=== PATIENT | female | born 1965 | race Caucasian/White ===

== ENCOUNTER 2016-08-28 07:13 | Emergency (ER) | payer BC ==
[~2016-08-28] VITALS: Ht 170.2 cm; Wt 70.3 kg
[~2016-08-28 07:13] MED LIST: FLUT250M2 IN; IBU100LQ GT; PERCOT PO; PRO AIR INH; SUM25T PO
[2016-08-28 07:33] VITALS: BP 153/94
[2016-08-28] MEDS ORDERED: PROCHLORPERAZINE EDISYLATE 5 MG/ML 2ML VIAL IV ONE (08:00)
== END 2016-08-28 09:56 | disposition home or self-care (01) ==
LOC: ER 07:14
DX: G43.909 Migraine, unspecified, not intractable, without status migrainosus (principal); J45.909 Unspecified asthma, uncomplicated; Z87.891 Personal history of nicotine dependence; R11.2 Nausea with vomiting, unspecified; H53.149 Visual discomfort, unspecified
CPT/HCPCS: 96374; 99284; J0780

== ENCOUNTER → 2019-06-11 | Outpatient (CLI) | payer BC ==
[~2019-06-11] MED LIST changes: -IBU100LQ GT; +IBUP100S11 GT
[2019-06-11 11:24] LABS: Basophils # (auto) 0 uL; Basophils % (auto) 0.4 % (0.0-2.0); Eosinophils # (auto) 0.4 uL; Eosinophils % (auto) 5.9 % (0.0-7.0); Hematocrit 50.2 % (36.0-46.0); Hemoglobin 16.8 g/dL (12.2-16.2); Lymphocytes % (auto) 29.6 % (10.0-50.0); Mean Corpuscular Hemoglobin 31.1 pg (28.0-32.0); Mean Corpuscular Hgb Conc. 33.4 g/dL (32.0-36.0); Monocytes # (auto) 0.7 uL; Monocytes % (auto) 10.7 % (0.0-12.0); Neutrophils # (auto) 3.5 uL; Neutrophils % (auto) 53.4 % (37.0-80.0); Nucleated Red Blood Cells % 0.1 %; Platelet Count (auto) 241 10^3/uL (140-450); Red Cell Distribution Width 12.9 % (11.8-14.3); White Blood Cell 6.6 10^3/uL (4.4-10.8)
[2019-06-11 11:27] LABS: Urine Bacteria NONE SEEN /hpf (None Seen); Urine Blood 2+ /uL (Negative); Urine Mucus FEW (None Seen); Urine Specific Gravity 1.027 (1.001-1.035); Urine WBC 6 /hpf (0 - 5)
[2019-06-11 12:21] LABS: Follicle Stimulating Hormone 67.8 IU/L (SEE BELOW); Leuteinizing Hormone 22.4 IU/L
[2019-06-11 12:22] LABS: Folate (Folic Acid) 13.25 ng/mL (5.38-24)
[2019-06-11 12:45] LABS: Albumin 3.6 g/dL (3.4-5.0); BUN/Creatinine Ratio 16.9; Bilirubin, Total 0.6 mg/dL (0.2-1.0); Calcium 9.9 mg/dL (8.5-10.1)
[2019-06-11 14:10] LABS: Potassium 2.9 mmol/L (3.5-5.1)
== END | disposition home or self-care (01) ==
LOC: LAB 11:06
PROVIDERS: ATTEND Nurse Practitioner
DX: Z00.00 Encounter for general adult medical examination without abnormal findings (principal); E78.5 Hyperlipidemia, unspecified
CPT/HCPCS: 36415; 80053; 80061; 81001; 82306; 82607; 82670; 82746; 83001; 83002; 84403; 84443; 85025

== ENCOUNTER → 2019-09-12 | Outpatient (CLI) | payer BC | END | disposition home or self-care (01) | LOC: LAB 16:00 | PROVIDERS: ATTEND Urology | DX: R32 Unspecified urinary incontinence (principal); R31.9 Hematuria, unspecified | CPT/HCPCS: 87086 ==

== ENCOUNTER 2020-02-06 06:23 | Day surgery (SDC) | payer BC ==
[2020-02-04 14:45] LABS: Basophils # (auto) 0.1 10 ^3/uL (0-0.2); Basophils % (auto) 1.3 % (0.0-2.0); Eosinophils # (auto) 0.4 10 ^3/uL (0-0.8); Eosinophils % (auto) 4.9 % (0.0-7.0); Hematocrit 45.9 % (36.0-46.0); Hemoglobin 15.1 g/dL (12.2-16.2); Lymphocytes # (auto) 1.9 10 ^3/uL (0.4-5.4); Lymphocytes % (auto) 25.5 % (10.0-50.0); Mean Corpuscular Hemoglobin 30.5 pg (28.0-32.0); Mean Corpuscular Volume 92.6 fL (80.0-100.0); Monocytes # (auto) 0.8 10 ^3/uL (0-1.3); Monocytes % (auto) 10.2 % (0.0-12.0); Neutrophils # (auto) 4.4 10 ^3/uL (1.6-8.6); Neutrophils % (auto) 58.1 % (37.0-80.0); Platelet Count (auto) 229 10^3/uL (140-450); Red Blood Cells 4.95 10^6/uL (4.0-5.20); Red Cell Distribution Width 13.4 % (11.8-14.3); White Blood Cell 7.6 10^3/uL (4.4-10.8)
[2020-02-04 14:54] LABS: Urine Bacteria NONE SEEN /hpf (None Seen); Urine Blood Negative /uL (Negative); Urine Mucus FEW (None Seen); Urine Specific Gravity 1.026 (1.001-1.035); Urine WBC 1 /hpf (0 - 5)
[2020-02-04 15:02] LABS: Calcium 8.8 mg/dL (8.5-10.1); Potassium 3.5 mmol/L (3.5-5.1)
[2020-02-04 15:06] LABS: Bilirubin, Total 0.3 mg/dL (0.2-1.0); Total Protein 6.9 g/dL (6.4-8.2)
[2020-02-04 15:19] LABS: INR 0.96 (0.9-1.15); Partial Thromboplastin Time 26.1 sec (23.64-32.05)
[~2020-02-06] VITALS: Ht 167.6 cm; Wt 65.8 kg
[~2020-02-06 06:23] MED LIST changes: -FLUT250M2 IN; -IBUP100S11 GT; -PERCOT PO
[2020-02-06] MEDS ORDERED: ceFAZolin 1GM/50ML 50 ML IV ONE (07:13)
[2020-02-06] MEDS ORDERED: PHENYLEPHRINE HCL 10 MG/ML VL IV ONE (07:15)
[2020-02-06] MEDS ORDERED: ONDANSETRON HCL 4 MG/2 ML VIAL IV ONE (07:15)
[2020-02-06] MEDS ORDERED: LIDOCAINE W/ EPINEPHRINE 1 % INJ 30ML ONE (07:20)
[2020-02-06] MEDS ORDERED: CONJ ESTROGENS 0.625MG/GM VAG CRM 30GM PV ONE (07:20)
[2020-02-06] MEDS ORDERED: ceFAZolin 1GM VL ONE (07:20)
[2020-02-06] MEDS ORDERED: MIDAZOLAM HCL 1MG/1ML-2 ML VIAL ONE (07:24)
[2020-02-06] MEDS ORDERED: fentaNYL CITRATE 100 MCG/2 ML VL ONE (07:24)
[2020-02-06] MEDS ORDERED: MEPERIDINE HCL (50 MG/ML) 1 ML VIAL ONE (07:24)
[2020-02-06] MEDS ORDERED: DexAMETHasone SOD PHOS 10MG/1ML VIAL INJ ONE (07:27)
[2020-02-06] MEDS ORDERED: PROPOFOL 10 MG/ML 20 ML IV ONE (07:27)
[2020-02-06] MEDS ORDERED: LABETALOL HCL 5 MG/ML 4ML SYRINGE IV PRN (08:15)
[2020-02-06] MEDS ORDERED: HYDROmorphone HCL 2 MG/ML VL IV PRN (08:15)
[2020-02-06] MEDS ORDERED: ePHEDrine SULFATE 50 MG/ML AMP IV PRN (08:15)
[2020-02-06] MEDS ORDERED: MORPHINE SULF INJ 2 MG/ML SYRINGE 1ML IV PRN (08:15)
[2020-02-06] MEDS ORDERED: KETOROLAC TROMETH 30 MG/ML 1ML VIAL IV ONE (08:15)
[2020-02-06] MEDS ORDERED: ONDANSETRON HCL 4 MG/2 ML VIAL IV PRN (08:15)
[2020-02-06] MEDS ORDERED: MIDAZOLAM HCL 1MG/1ML-2 ML VIAL IV PRN (08:15)
[2020-02-06 09:45] VITALS: BP 129/74
== END 2020-02-06 09:50 | disposition home or self-care (01) ==
LOC: SUR 06:23
PROVIDERS: ATTEND Urology
DX: N39.3 Stress incontinence (female) (male) (principal); K21.9 Gastro-esophageal reflux disease without esophagitis; I10 Essential (primary) hypertension; J45.909 Unspecified asthma, uncomplicated; D64.9 Anemia, unspecified; Z97.10 Presence of artificial limb (complete) (partial), unspecified; Z11.59 Encounter for screening for other viral diseases
CPT/HCPCS: 36415; 57288; 80053; 81001; 84702; 85025; 85610; 85730; C1763; J0690; J1100; J2001; J2175; J2250; J2370; J2405; J2704; J3010; U0003

== ENCOUNTER → 2020-02-17 | Outpatient (CLI) | payer BC | END | disposition home or self-care (01) | LOC: LAB 16:48 | PROVIDERS: ATTEND Physician Assistant | DX: Z03.818 Encounter for observation for suspected exposure to other biological agents ruled out (principal) | CPT/HCPCS: C9803; U0003; 87635 ==

== ENCOUNTER → 2021-01-14 | Outpatient (CLI) | payer BC ==
[2021-01-14 08:17] LABS: Basophils # (auto) 0.1 10 ^3/uL (0-0.2); Basophils % (auto) 2.1 % (0.0-2.0); Eosinophils # (auto) 0.4 10 ^3/uL (0-0.8); Hematocrit 42.7 % (36.0-46.0); Hemoglobin 14.8 g/dL (12.2-16.2); Lymphocytes # (auto) 2.2 10 ^3/uL (0.4-5.4); Mean Corpuscular Hemoglobin 31.6 pg (28.0-32.0); Mean Corpuscular Hgb Conc. 34.7 g/dL (32.0-36.0); Mean Corpuscular Volume 91.2 fL (80.0-100.0); Monocytes # (auto) 0.8 10 ^3/uL (0-1.3); Monocytes % (auto) 13.1 % (0.0-12.0); Neutrophils # (auto) 2.8 10 ^3/uL (1.6-8.6); Neutrophils % (auto) 43.8 % (37.0-80.0); Nucleated Red Blood Cells % 0.1 %; Platelet Count (auto) 225 10^3/uL (140-450); Red Blood Cells 4.68 10^6/uL (4.0-5.20); Red Cell Distribution Width 13.4 % (11.8-14.3); White Blood Cell 6.4 10^3/uL (4.4-10.8)
[2021-01-14 08:22] LABS: Urine Bacteria NONE SEEN /hpf (None Seen); Urine Blood Negative /uL (Negative); Urine Mucus FEW (None Seen); Urine Specific Gravity 1.018 (1.001-1.035); Urine WBC 4 /hpf (0 - 5)
[2021-01-14 08:59] LABS: Albumin 3.4 g/dL (3.4-5.0); Potassium 3.5 mmol/L (3.5-5.1)
[2021-01-14 09:08] LABS: BUN/Creatinine Ratio 13.5; Bilirubin, Total 0.3 mg/dL (0.2-1.0); Calcium 9.8 mg/dL (8.5-10.1); Total Protein 7.2 g/dL (6.4-8.2)
== END | disposition home or self-care (01) ==
LOC: LAB 07:52
PROVIDERS: ATTEND Nurse Practitioner
DX: I10 Essential (primary) hypertension (principal); R32 Unspecified urinary incontinence; R51.9 Headache, unspecified
CPT/HCPCS: 36415; 80053; 80061; 81001; 84443; 85025; 86735; 86762; 86765

== ENCOUNTER 2021-04-23 12:06 | Day surgery (SDC) | payer BC ==
[2021-04-21 10:28] LABS: Basophils # (auto) 0 10 ^3/uL (0-0.2); Basophils % (auto) 0.3 % (0.0-2.0); Eosinophils # (auto) 0.4 10 ^3/uL (0-0.8); Eosinophils % (auto) 6.3 % (0.0-7.0); Hemoglobin 15.1 g/dL (12.2-16.2); Lymphocytes # (auto) 1.9 10 ^3/uL (0.4-5.4); Lymphocytes % (auto) 31.4 % (10.0-50.0); Mean Corpuscular Hemoglobin 31.5 pg (28.0-32.0); Mean Corpuscular Hgb Conc. 34.3 g/dL (32.0-36.0); Monocytes # (auto) 0.6 10 ^3/uL (0-1.3); Neutrophils # (auto) 3.2 10 ^3/uL (1.6-8.6); Nucleated Red Blood Cells % 0.1 %; Red Blood Cells 4.79 10^6/uL (4.0-5.20); Red Cell Distribution Width 13.3 % (11.8-14.3); White Blood Cell 6.2 10^3/uL (4.4-10.8)
[2021-04-21 11:19] LABS: Calcium 9.3 mg/dL (8.5-10.1); Potassium 3.3 mmol/L (3.5-5.1)
[2021-04-21 11:41] LABS: Albumin 3.1 g/dL (3.4-5.0); BUN/Creatinine Ratio 13.6; Bilirubin, Total 0.3 mg/dL (0.2-1.0); Total Protein 7.2 g/dL (6.4-8.2)
[~2021-04-23] VITALS: Ht 167.6 cm; Wt 65.8 kg
[~2021-04-23 12:06] MED LIST changes: +LISI2.5T47 PO
[2021-04-23] MEDS ORDERED: LIDOCAINE VISCOUS 2% 15ML UD ONE (12:49)
[2021-04-23] MEDS ORDERED: diphenhdrAMINE HCL 50 MG/1 ML VL ONE (12:49)
[2021-04-23] MEDS ORDERED: SODIUM CHLORIDE LOCK 10 ML ONE (12:49)
[2021-04-23] MEDS: fentaNYL CITRATE 100 MCG/2 ML VL ONE ×3 (13:11→13:17)
[2021-04-23] MEDS: MIDAZOLAM HCL 5 MG/ML-1ML VIAL ONE ×3 (13:11→13:17)
[2021-04-23 13:40] VITALS: BP 128/82
== END 2021-04-23 14:10 | disposition home or self-care (01) ==
LOC: GI 12:06
PROVIDERS: ATTEND Internal Medicine Gastroenterology
DX: R13.10 Dysphagia, unspecified (principal); K29.50 Unspecified chronic gastritis without bleeding; K31.89 Other diseases of stomach and duodenum; K44.9 Diaphragmatic hernia without obstruction or gangrene; K22.10 Ulcer of esophagus without bleeding; K21.9 Gastro-esophageal reflux disease without esophagitis; J45.909 Unspecified asthma, uncomplicated; Z91.018 Allergy to other foods; Z90.710 Acquired absence of both cervix and uterus; Z20.822 Contact with and (suspected) exposure to COVID-19; Z98.890 Other specified postprocedural states; Z79.899 Other long term (current) drug therapy; Z90.721 Acquired absence of ovaries, unilateral
CPT/HCPCS: 36415; 43239; 80053; 85025; 88305; 88312; 88313; 88342; J1200; J2250; J3010; J7030; U0003

== ENCOUNTER 2021-08-12 22:55 | Emergency (ER) | payer BC ==
[2021-08-12] MEDS ORDERED: ACETAMINOPHEN 325 MG TAB PO ONE (23:15)
[2021-08-13 01:03] LABS: Urine Bacteria NONE SEEN /hpf (None Seen); Urine Blood Negative /uL (Negative); Urine Specific Gravity 1.018 (1.001-1.035); Urine WBC 1 /hpf (0 - 5)
== END 2021-08-13 06:39 | disposition left against medical advice (07) ==
LOC: EEVIPCON 22:57 → ER 22:57
DX: R05.9 Cough, unspecified (principal); Z53.21 Procedure and treatment not carried out due to patient leaving prior to being seen by health care provider; Z20.822 Contact with and (suspected) exposure to COVID-19
CPT/HCPCS: 36415; 71046; 81001; 87426; 87804; C9803; U0003

== ENCOUNTER → 2023-01-23 | Outpatient (CLI) | payer BC ==
[2023-01-23 11:13] LABS: Basophils # (auto) 0.1 10 ^3/uL (0-0.2); Basophils % (auto) 1.4 % (0.0-2.0); Eosinophils # (auto) 0.3 10 ^3/uL (0-0.8); Eosinophils % (auto) 4.1 % (0.0-7.0); Hematocrit 43.8 % (36.0-46.0); Hemoglobin 14.8 g/dL (12.2-16.2); Lymphocytes % (auto) 30.7 % (10.0-50.0); Mean Corpuscular Hemoglobin 30.7 pg (28.0-32.0); Mean Corpuscular Hgb Conc. 33.7 g/dL (32.0-36.0); Mean Corpuscular Volume 90.9 fL (80.0-100.0); Monocytes # (auto) 0.7 10 ^3/uL (0-1.3); Neutrophils # (auto) 3.4 10 ^3/uL (1.6-8.6); Neutrophils % (auto) 52.8 % (37.0-80.0); Nucleated Red Blood Cells % 0.2 %; Red Blood Cells 4.82 10^6/uL (4.0-5.20); Red Cell Distribution Width 13.5 % (11.8-14.3); White Blood Cell 6.4 10^3/uL (4.4-10.8)
[2023-01-23 11:31] LABS: Urine Bacteria NONE SEEN /hpf (None Seen); Urine Blood Negative /uL (Negative); Urine Mucus FEW (None Seen); Urine Specific Gravity 1.021 (1.001-1.035); Urine WBC 8 /hpf (0 - 5)
[2023-01-23 11:46] LABS: Potassium 3.8 mmol/L (3.5-5.1)
[2023-01-23 11:52] LABS: Calcium 9.2 mg/dL (8.5-10.1)
== END | disposition home or self-care (01) ==
LOC: LAB 10:50
PROVIDERS: ATTEND Nurse Practitioner
DX: I10 Essential (primary) hypertension (principal); E78.5 Hyperlipidemia, unspecified; R73.9 Hyperglycemia, unspecified
CPT/HCPCS: 36415; 80048; 80061; 81001; 83036; 84443; 85025

== ENCOUNTER 2024-02-05 16:03 | Emergency (ER) | payer BC ==
[~2024-02-05] VITALS: Ht 167.6 cm; Wt 68.0 kg
[2024-02-05 16:15] VITALS: PULSE 118; RESP 22; O2SAT 92
[2024-02-05] MEDS: ONDANSETRON HCL 4 MG/2 ML VIAL IV ONE (16:59)
[2024-02-05] MEDS: fentaNYL CITRATE 100 MCG/2 ML VL IV ONE (17:00)
[2024-02-05] MEDS: SODIUM CHLORIDE 0.9% 1,000 ML IVB ONE (17:01)
[2024-02-05 17:37] LABS: INR 1.05 (0.9-1.15); Partial Thromboplastin Time 25.8 SEC (24.5-34.5); Prothrombin Time 11.1 sec (9.3-11.8)
[2024-02-05 17:54] LABS: Alanine Aminotransferase 18 U/L (7-40); Albumin 4.1 g/dL (3.2-4.8); Alkaline Phosphatase 93 U/L (46-116); Anion Gap 10 (5-15); Aspartate Aminotransferase 17 U/L (13-40); BUN/Creatinine Ratio 14.6 (10.0-20.0); Blood Urea Nitrogen 20 mg/dL (9-23); Calcium 9.5 mg/dL (8.5-10.1); Carbon Dioxide 22 mmol/L (20-30); Chloride 106 mmol/L (98-107); Glucose 136 mg/dL (74-106); Magnesium 1.7 mg/dL (1.6-2.6); Potassium 3.2 mmol/L (3.5-5.1); Sodium 138 mmol/L (136-145)
[2024-02-05 17:55] LABS: Bilirubin, Total 0.8 mg/dL (0.2-1.0); Total Protein 6.9 g/dL (5.7-8.2)
[2024-02-05 17:57] LABS: Lactic Acid w/Reflex 2.4 mmol/L (0.4-2.0)
[2024-02-05 18:03] LABS: Basophils # (auto) 0.1 10 ^3/uL (0-0.2); Basophils % (auto) 0.5 % (0.0-2.0); Eosinophils # (auto) 0 10 ^3/uL (0-0.8); Hematocrit 44.6 % (36.0-46.0); Hemoglobin 15.3 g/dL (12.2-16.2); Lymphocytes # (auto) 0.4 10 ^3/uL (0.4-5.4); Lymphocytes % (auto) 3.6 % (10.0-50.0); Mean Corpuscular Hemoglobin 31.1 pg (28.0-32.0); Mean Corpuscular Hgb Conc. 34.4 g/dL (32.0-36.0); Mean Corpuscular Volume 90.4 fL (80.0-100.0); Monocytes # (auto) 0.6 10 ^3/uL (0-1.3); Monocytes % (auto) 5.1 % (0.0-12.0); Neutrophils # (auto) 10.4 10 ^3/uL (1.6-8.6); Neutrophils % (auto) 90.8 % (37.0-80.0); Red Blood Cells 4.93 10^6/uL (4.0-5.20); Red Cell Distribution Width 13.6 % (11.8-14.3); White Blood Cell 11.5 10^3/uL (4.4-10.8)
[2024-02-05 18:16] LABS: Lipase 33 U/L (12-53)
[2024-02-05 18:28] LABS: Urine Bacteria MOD /hpf (None Seen); Urine Blood 1+ /uL (Negative); Urine Clarity Clear (Clear); Urine Color Yellow (Yellow); Urine Mucus FEW (None Seen); Urine Protein, UAD TRACE (Negative); Urine Specific Gravity 1.027 (1.001-1.035); Urine Urobilinogen Normal (Negative); Urine WBC 8 /hpf (0 - 5)
[2024-02-05] MEDS: POTASSIUM CHLORIDE 40 MEQ, LIDOCAINE 1% (LOCAL ANESTH.) 4 ML in SODIUM CHL 0.9% 250 ML IV ONE (19:02)
[2024-02-05] MEDS: METOCLOPRAMIDE HCL 5MG/ml INJ 2ml VIAL IV ONE (19:29)
[2024-02-05] MEDS: ACETAMINOPHEN 325 MG TAB PO ONE (21:42)
[2024-02-05 23:10] VITALS: BP 121/69; PULSE 101; RESP 18; TEMP 98.6; O2SAT 94
== END 2024-02-05 23:18 | disposition home or self-care (01) ==
LOC: ER 16:03 → EEVIPCON 16:03 → ER 23:18
DX: K52.9 Noninfective gastroenteritis and colitis, unspecified (principal); K44.9 Diaphragmatic hernia without obstruction or gangrene; E86.0 Dehydration; E87.6 Hypokalemia; J45.909 Unspecified asthma, uncomplicated; Z90.49 Acquired absence of other specified parts of digestive tract; Z90.710 Acquired absence of both cervix and uterus; Z79.891 Long term (current) use of opiate analgesic; Z91.018 Allergy to other foods; Z87.891 Personal history of nicotine dependence
CPT/HCPCS: 36415; 74176; 80053; 81001; 83605; 83690; 83735; 85025; 85610; 85730; 96361; 96365; 96366; 96375; 99285; J2001; J2405; J2765; J3010; J3480; J7030; J7050

== ENCOUNTER 2025-02-17 09:16 | Outpatient (CLI) | payer BC ==
[2025-02-17 10:18] LABS: Alanine Aminotransferase 17 U/L (7-40); Alkaline Phosphatase 97 U/L (46-116); Anion Gap 9 (5-15); BUN/Creatinine Ratio 13.4 (10.0-20.0); Blood Urea Nitrogen 16 mg/dL (9-23); Carbon Dioxide 28 mmol/L (20-31); Glucose 103 mg/dL (74-106); Potassium 3.8 mmol/L (3.5-5.1); Sodium 144 mmol/L (136-145); Total Protein 6.9 g/dL (5.7-8.2); Triglycerides 102 mg/dL (< 150)
[2025-02-17 10:19] LABS: Albumin 4.2 g/dL (3.2-4.8); Bilirubin, Total 0.6 mg/dL (0.2-1.0); Cholesterol 177 mg/dL (< 200); HDL Cholesterol 43 mg/dL (40-59); Hematocrit 44.7 % (36.0-46.0); Hemoglobin 15.0 g/dL (12.2-16.2); Mean Corpuscular Hemoglobin 30.9 pg (28.0-32.0); Mean Corpuscular Volume 91.9 fL (80.0-100.0); Nucleated Red Blood Cells % 0.1 %
[2025-02-17 10:20] LABS: Calcium 10.6 mg/dL (8.7-10.4); Chloride 107 mmol/L (98-107)
[2025-02-17 10:30] LABS: Urine Protein, UAD Negative (Negative)
== END 2025-02-17 17:00 | disposition home or self-care (01) ==
LOC: LAB 09:16
PROVIDERS: ATTEND Nurse Practitioner
DX: I10 Essential (primary) hypertension (principal); E78.5 Hyperlipidemia, unspecified; R73.9 Hyperglycemia, unspecified
CPT/HCPCS: 36415; 80053; 80061; 81003; 83036; 84443; 85025